=== PATIENT | female | born 1995 | race Caucasian/White ===

== ENCOUNTER 2022-08-20 20:12 | Emergency (ER) | payer MEDICAID ==
[~2022-08-20] VITALS: Ht 162.6 cm; Wt 71.7 kg
[2022-08-20 20:27] VITALS: BP 110/84
[2022-08-21] MEDS ORDERED: IBUPROFEN 800MG TABLET PO ONE (02:30)
[2022-08-21 03:07] LABS: EOSINOPHILS % 1.4 % (0.0-5.0); HEMATOCRIT. 41.8 % (36.0-48.0); MEAN CORPUSCULAR VOLUME 81.7 fL (81.0-99.0)
[2022-08-21 03:09] LABS: BASOPHILS % 0.2 % (0.0-2.0); HEMOGLOBIN. 14.3 g/dL (12.0-16.0); LYMPHOCYTES % 34.5 % (20.0-50.0); MEAN CORPUSCULAR HEMOGLOBIN 27.9 pg (28.0-32.0); MEAN PLATELET VOLUME 7.7 fl (7.4-10.4); MONOCYTES % 5.6 % (2.0-8.0); NEUTROPHILS % 58.3 % (40.0-76.0); PLATELET 306 x1000/uL (130-400); RED BLOOD CELL COUNT 5.11 mill/uL (4.2-5.4); RED CELL DISTRIBUTION WIDTH 13.3 % (11.6-14.6)
[2022-08-21 03:11] LABS: CHLORIDE 103 mEq/L (98-107)
[2022-08-21 03:16] LABS: HCG SCREEN NEGATIVE
[2022-08-21 03:17] LABS: CLARITY URINE CLEAR (CLEAR); COLOR URINE YELLOW (YELLOW); KETONES URINE NEGATIVE (NEGATIVE); LEUKOCYTE ESTERASE URINE TRACE (NEGATIVE); NITRITE URINE NEGATIVE (NEGATIVE); OCCULT BLOOD URINE NEGATIVE (NEGATIVE); PH URINE 6.5 (4.5-8.0); PROTEIN URINE NEGATIVE (NEGATIVE); SPECIFIC GRAVITY URINE 1.007 (1.005-1.030); UROBILINOGEN URINE 0.2 E.U./dL (0.2-1.0)
[2022-08-21] MEDS ORDERED: CEPHALEXIN 250MG CAPSULE PO ONE (05:15)
[2022-08-21] MEDS ORDERED: NITR-87 MT (05:56)
== END 2022-08-21 06:26 | disposition home or self-care (01) ==
LOC: ER 20:36
DX: R10.32 Left lower quadrant pain (principal); Z98.890 Other specified postprocedural states
CPT/HCPCS: 36415; 74176; 76830; 76856; 80053; 81003; 81025; 84703; 85025; 99284